=== PATIENT | female | born 1980 | race Caucasian/White ===

== ENCOUNTER 2016-02-08 00:30 | Emergency (ER) | payer OTHER ==
[~2016-02-08] VITALS: Ht 160 cm; Wt 45.5 kg
[~2016-02-08 00:30] MED LIST: AMOXICILLIN 50500 MG PO; AMOXICILLIN 8751 TAB PO; BIRTH CONTRO; BUSPAR5 MG PO; DUO-KAPS1 CAP PO; KLONOPIN 0.5MG0.5 MG PO; KLONOPIN 1MG1 MG PO; ORTHO TRI-CYCLE1 TA2 PO; PHENERGAN W/CO120 M1 PO; TRINESSA1 TAB; TUSS PO; WELLBUTRIN 75MG75 MG PO; ZOLOFT 25MG25 MG PO; [UNRECOGNIZED DRUG - REMARK]
[2016-02-08 00:31] VITALS: BP 129/85; TEMP 98.3
[2016-02-08 01:42] VITALS: PULSE 70
== END 2016-02-08 01:44 | disposition home or self-care (01) ==
LOC: COL.ER 00:30
DX: S61.412A Laceration without foreign body of left hand, initial encounter (principal); W25.XXXA Contact with sharp glass, initial encounter; Y92.009 Unspecified place in unspecified non-institutional (private) residence as the place of occurrence of the external cause

== ENCOUNTER 2016-02-18 17:46 | Emergency (ER) | payer OTHER ==
[2016-02-18 17:47] VITALS: BP 124/76; PULSE 60
== END 2016-02-18 18:17 | disposition home or self-care (01) ==
LOC: COL.ER 17:46
DX: Z48.02 Encounter for removal of sutures (principal)

== ENCOUNTER → 2016-10-13 | Outpatient (CLI) | payer OTHER | LOC: BHSO 09:58 | DX: F41.1 Generalized anxiety disorder (principal) ==

== ENCOUNTER → 2016-11-18 | Outpatient (CLI) | payer OTHER | LOC: BHSO 12:55 | DX: F41.1 Generalized anxiety disorder (principal) ==

== ENCOUNTER → 2016-12-02 | Outpatient (CLI) | payer OTHER | LOC: BHSO 12:56 | DX: F41.1 Generalized anxiety disorder (principal) ==

== ENCOUNTER → 2016-12-16 | Outpatient (CLI) | payer OTHER | LOC: BHSO 13:02 | DX: F41.1 Generalized anxiety disorder (principal) ==

== ENCOUNTER → 2016-12-29 | Outpatient (CLI) | payer OTHER | LOC: BHSO 12:55 | DX: F41.1 Generalized anxiety disorder (principal) ==

== ENCOUNTER → 2017-01-13 | Outpatient (CLI) | payer OTHER | LOC: BHSO 12:57 | DX: F41.1 Generalized anxiety disorder (principal) ==

== ENCOUNTER → 2017-01-27 | Outpatient (CLI) | payer OTHER | LOC: BHSO 12:54 | DX: F41.1 Generalized anxiety disorder (principal) ==

== ENCOUNTER → 2017-02-10 | Outpatient (CLI) | payer OTHER | LOC: BHSO 12:58 | DX: F41.1 Generalized anxiety disorder (principal) ==

== ENCOUNTER → 2017-03-10 | Outpatient (CLI) | payer OTHER | LOC: BHSO 13:00 | DX: F41.1 Generalized anxiety disorder (principal) ==

== ENCOUNTER → 2017-05-17 | Outpatient (CLI) | payer OTHER | LOC: BHSO 13:00 | DX: F41.1 Generalized anxiety disorder (principal) ==

== ENCOUNTER → 2017-08-05 | Outpatient (CLI) | payer OTHER | LOC: BHSO 12:59 | DX: F41.1 Generalized anxiety disorder (principal) ==

== ENCOUNTER → 2017-08-09 | Outpatient (CLI) | payer OTHER | LOC: COL.RAD 07:26 | DX: M43.17 Spondylolisthesis, lumbosacral region (principal); M51.27 Other intervertebral disc displacement, lumbosacral region; M48.07 Spinal stenosis, lumbosacral region ==

== ENCOUNTER → 2018-02-14 | Outpatient (CLI) | payer OTHER | LOC: BHSO 13:01 | DX: F41.1 Generalized anxiety disorder (principal) ==

== ENCOUNTER → 2018-04-04 | Outpatient (CLI) | payer OTHER | LOC: BHSO 13:00 | DX: F41.1 Generalized anxiety disorder (principal) ==

== ENCOUNTER → 2018-09-21 | Outpatient (CLI) | payer OTHER | LOC: BHSO 12:58 | DX: F41.1 Generalized anxiety disorder (principal) ==

== ENCOUNTER → 2018-09-29 | Outpatient (CLI) | payer OTHER | LOC: BHSO 09:00 | DX: F41.1 Generalized anxiety disorder (principal) ==

== ENCOUNTER → 2018-10-02 | Outpatient (CLI) | payer OTHER | LOC: BHSO 10:59 | DX: F41.0 Panic disorder [episodic paroxysmal anxiety] (principal) ==

== ENCOUNTER → 2018-10-05 | Outpatient (CLI) | payer OTHER | LOC: BHSO 12:58 | DX: F41.1 Generalized anxiety disorder (principal) ==

== ENCOUNTER → 2018-10-19 | Outpatient (CLI) | payer OTHER | LOC: BHSO 12:57 | DX: F41.1 Generalized anxiety disorder (principal) ==

== ENCOUNTER → 2018-10-30 | Outpatient (CLI) | payer OTHER | LOC: BHSO 13:01 | DX: F41.1 Generalized anxiety disorder (principal) ==

== ENCOUNTER → 2018-11-06 | Outpatient (CLI) | payer OTHER | LOC: BHSO 12:55 | DX: F41.0 Panic disorder [episodic paroxysmal anxiety] (principal) | CPT/HCPCS: G0463 ==

== ENCOUNTER → 2018-11-16 | Outpatient (CLI) | payer OTHER | LOC: BHSO 13:04 | DX: F41.1 Generalized anxiety disorder (principal) ==

== ENCOUNTER → 2018-11-21 | Outpatient (CLI) | payer OTHER | LOC: MHCPAIN 10:19 | DX: G89.29 Other chronic pain (principal); M47.817 Spondylosis without myelopathy or radiculopathy, lumbosacral region; M54.16 Radiculopathy, lumbar region; M53.3 Sacrococcygeal disorders, not elsewhere classified | CPT/HCPCS: G0463 ==

== ENCOUNTER → 2018-11-23 | Outpatient (CLI) | payer OTHER | LOC: MHCPAIN 11:02 | DX: M47.817 Spondylosis without myelopathy or radiculopathy, lumbosacral region (principal); M54.16 Radiculopathy, lumbar region | CPT/HCPCS: J1100; Q9967 ==

== ENCOUNTER 2018-12-02 23:28 | Emergency (ER) | payer OTHER ==
[~2018-12-02] VITALS: Ht 157.5 cm; Wt 42.3 kg
[2018-12-03 00:03] VITALS: BP 106/75; TEMP 97.4
[2018-12-03 02:05] VITALS: PULSE 87
== END 2018-12-03 02:05 | disposition left against medical advice (07) ==
LOC: COL.ER 23:28
DX: S09.90XA Unspecified injury of head, initial encounter (principal); S01.01XA Laceration without foreign body of scalp, initial encounter; F41.9 Anxiety disorder, unspecified; R40.2412 Glasgow coma scale score 13-15, at arrival to emergency department; W08.XXXA Fall from other furniture, initial encounter; Y92.009 Unspecified place in unspecified non-institutional (private) residence as the place of occurrence of the external cause

== ENCOUNTER → 2018-12-07 | Outpatient (CLI) | payer OTHER | LOC: BHSO 13:01 | DX: F41.1 Generalized anxiety disorder (principal) ==

== ENCOUNTER → 2018-12-11 | Outpatient (CLI) | payer OTHER ==
[2018-12-11 13:11] VITALS: BP 130/91; PULSE 94; TEMP 98.6
== END ==
LOC: COL.ER 13:06
DX: S01.01XD Laceration without foreign body of scalp, subsequent encounter (principal); X58.XXXD Exposure to other specified factors, subsequent encounter

== ENCOUNTER → 2018-12-13 | Outpatient (CLI) | payer OTHER | LOC: MHCPAIN 13:10 | DX: G89.29 Other chronic pain (principal); M47.817 Spondylosis without myelopathy or radiculopathy, lumbosacral region; M54.16 Radiculopathy, lumbar region; M53.3 Sacrococcygeal disorders, not elsewhere classified | CPT/HCPCS: G0463 ==

== ENCOUNTER → 2018-12-25 | Outpatient (CLI) | payer OTHER | LOC: MHCPAIN 13:33 | DX: M47.817 Spondylosis without myelopathy or radiculopathy, lumbosacral region (principal); M54.16 Radiculopathy, lumbar region | CPT/HCPCS: J1100; Q9967 ==

== ENCOUNTER → 2018-12-28 | Outpatient (CLI) | payer OTHER | LOC: BHSO 12:59 | DX: F41.1 Generalized anxiety disorder (principal) ==

== ENCOUNTER → 2019-01-10 | Outpatient (CLI) | payer OTHER | LOC: MHCPAIN 13:06 | DX: M47.817 Spondylosis without myelopathy or radiculopathy, lumbosacral region (principal); M53.3 Sacrococcygeal disorders, not elsewhere classified | CPT/HCPCS: G0463 ==

== ENCOUNTER → 2019-01-18 | Outpatient (CLI) | payer OTHER | LOC: BHSO 12:56 | DX: F33.1 Major depressive disorder, recurrent, moderate (principal) ==

== ENCOUNTER → 2019-01-25 | Outpatient (CLI) | payer OTHER | LOC: MHCPAIN 14:41 | DX: M43.17 Spondylolisthesis, lumbosacral region (principal) ==

== ENCOUNTER → 2019-02-21 | Outpatient (CLI) | payer OTHER | LOC: MHCPAIN 13:24 | DX: M47.817 Spondylosis without myelopathy or radiculopathy, lumbosacral region (principal); M53.3 Sacrococcygeal disorders, not elsewhere classified | CPT/HCPCS: G0463 ==

== ENCOUNTER → 2019-03-07 | Outpatient (CLI) | payer OTHER | LOC: BHSO 13:04 | DX: F41.0 Panic disorder [episodic paroxysmal anxiety] (principal) | CPT/HCPCS: G0463 ==

== ENCOUNTER → 2019-03-08 | Outpatient (CLI) | payer OTHER | LOC: MHCPAIN 13:46 | DX: M43.17 Spondylolisthesis, lumbosacral region (principal); M54.5 Low back pain ==

== ENCOUNTER → 2019-04-12 | Outpatient (CLI) | payer OTHER | LOC: MHCPAIN 13:10 | DX: M53.3 Sacrococcygeal disorders, not elsewhere classified (principal); M47.817 Spondylosis without myelopathy or radiculopathy, lumbosacral region; M43.17 Spondylolisthesis, lumbosacral region | CPT/HCPCS: G0463; J1100; J2250; J3010 ==

== ENCOUNTER → 2019-07-04 | Outpatient (CLI) | payer OTHER | LOC: MHCPAIN 12:58 | DX: M47.817 Spondylosis without myelopathy or radiculopathy, lumbosacral region (principal); M54.5 Low back pain; M53.3 Sacrococcygeal disorders, not elsewhere classified; M54.16 Radiculopathy, lumbar region; G89.29 Other chronic pain | CPT/HCPCS: G0463 ==

== ENCOUNTER → 2019-07-23 | Outpatient (CLI) | payer OTHER | LOC: BHSO 13:22 | DX: F41.1 Generalized anxiety disorder (principal) | CPT/HCPCS: G0463 ==

== ENCOUNTER 2019-09-09 03:15 | Inpatient (IN) | payer OTHER ==
[~2019-09-09] VITALS: Ht 157.5 cm; Wt 49.4 kg
[2019-09-09] VITALS (10 sets, daily range): BP systolic 90–110; BP diastolic 52–65; PULSE 59–79; TEMP 97.9–98.9
[2019-09-09] MEDS ORDERED: EFFEXOR XR75 MG/CAP PO (03:23)
[2019-09-09] MEDS ORDERED: NEURONTIN300 MG/CAP PO (03:24)
[2019-09-09] MEDS ORDERED: DESYREL 50MG50 MG PO (03:24)
[2019-09-09 03:46] LABS: BASO # 0.1 (0.0-0.2); BASO % 0.8 % (0.0-2.0); EOS # 0.1 (0.0-0.7); EOS % 1.9 % (0-4.0); GRAN # 5.4 (1.4-6.5); GRAN % 72.9 % (42.2-75.2); HEMATOCRIT 37.8 % (37.0-47.0); HEMOGLOBIN 13.1 g/dl (12.5-16.0); LYMPH # 1.3 (1.2-3.4); LYMPH % 17.8 % (20.0-51.0); MEAN CELL VOLUME 91 fl (80.0-100.0); MEAN CORPUSCULAR HEMOGLOBIN 32 pg (27.0-31.0); MEAN CORPUSCULAR HGB CONC 35 g/dl (33.0-37.0); MEAN PLATELET VOLUME 9.8 fl (7.4-10.4); MONO # 0.5 (0.1-0.6); MONO % 6.3 % (1.7-9.3); PLATELET COUNT 308 K/mm3 (130-400); RED BLOOD COUNT 4.14 M/mm3 (4.10-5.30); REDCELL DISTRIBUTION WIDTH-CV 11.9 % (11.5-14.5)
[2019-09-09 03:58] LABS: ALANINE AMINOTRANSFERASE 10 U/L (4-34); ALBUMIN 4.1 gm/dL (3.5-5.0); ALKALINE PHOSPHATASE 55 U/L (50-136); ANION GAP 6 mmol/L (7-16); AST,SGOT 22 U/L (15-37); BILIRUBIN,TOTAL 0.7 mg/dL (0.0-1.0); BLOOD UREA NITROGEN 7 mg/dL (7-17); C-REACTIVE PROTEIN < 0.5 mg/dL (0.0-0.9); CARBON DIOXIDE 26 mmol/L (22-30); CHLORIDE 103 mmol/L (98-107); CREATININE, serum 0.69 (0.52-1.25); GLUCOSE 116 mg/dL (74-106); LIPASE 58 U/L (23-300); POTASSIUM 3.6 mmol/L (3.4-5.0); SODIUM 136 mmol/L (137-145); TOTAL PROTEIN 7.5 gm/dL (6.4-8.2)
[2019-09-09 06:22] LABS: COLLECTION METHOD CLEAN CATCH
[2019-09-09 06:31] LABS: MUCOUS Present /lpf; PH 5 (5-8); URINE APPEARANCE Clear; URINE BACTERIA None Seen /hpf; URINE BILIRUBIN Negative (NEGATIVE); URINE BLOOD 1+ (NEGATIVE); URINE COLOR Yellow; URINE GLUCOSE Negative (NEGATIVE); URINE KETONE Trace (NEGATIVE); URINE LEUKOCYTE ESTERASE Negative (NEGATIVE); URINE NITRATE Negative (NEGATIVE); URINE PROTEIN(semi-quant) Negative (NEGATIVE); URINE UROBILINOGEN Negative (NEGATIVE)
--- NOTE | 2019-09-09 15:28 | NUR ---
PATIENT ASSESSMENT COMPLETED SHE IS HAVING SOME ABDOMEN PAIN BUT IT IS TOLERABLE WITH EPIDURAL. ICE CHIPS ALSO PROVIDED PER ORDERS. DRESSING IS CLEAN DRY AND INTACT. EPIDURAL INTACT
--- NOTE | 2019-09-09 15:30 | NUR ---
PATIENT RESTING COMFORTABLE IN BED.
--- NOTE | 2019-09-09 16:50 | NUR ---
PATIENT ATTEMPTING TO TAKE A NAP. RESTING IN BED
--- NOTE | 2019-09-09 18:08 | NUR ---
PATIENT REPOSITIONED IN BED. TOLERATES CLEAR LIQUIDS WITHOUT DIFFICULTY.
--- NOTE | 2019-09-09 18:58 | NUR ---
PATIENT EATING JELLO AND DENIES OTHER NEEDS RESTING IN BED.
--- NOTE | 2019-09-09 20:01 | NUR ---
Pt. laying in bed at this time. Pt. is A&OX3, assessment complete. IV to lt. ac patent, IV fluids infusing per orders. Epidural intact, dressing CDI. Abd. midline incision with airstrip with minimal drainage noted. Pt. reports pain under control at this time with the epidural. Pt. denies further needs, call light within reach.
[2019-09-10] VITALS (7 sets, daily range): BP systolic 99–132; BP diastolic 55–87; PULSE 67–83; TEMP 97.4–98.7
--- NOTE | 2019-09-10 04:45 | NUR ---
Pt.'s epidural empty. Claude Stone CRNA notified. Pt. given 1 dose of Dilaudid for pain.
[2019-09-10 07:02] LABS: CALCIUM 8.5 mg/dL (8.4-10.2); CREATININE, serum 0.73 (0.52-1.25); POTASSIUM 3.8 mmol/L (3.4-5.0)
[2019-09-10 07:17] LABS: HEMOGLOBIN 12.1 g/dl (12.5-16.0)
[2019-09-10 07:21] LABS: HEMATOCRIT 34.7 % (37.0-47.0)
--- NOTE | 2019-09-10 07:50 | NUR ---
Patient tearful at bedside shift report. Prn Morphine was given. Reglan for complaints if nausea. Anesthesia notified of new epidural bag from pharmacy. Claude Stone INTERLOCKING PAVEMENT INSTALLER replaced bag. Plan of care reviewed with patient, once pain better managed, activity to be encourged. Is and CDB encourged, even though it hurts. Stressed the imporance. Patient refused Scds at this time. Ivf to Lac. Vss.
--- NOTE | 2019-09-10 08:43 | NUR ---
Patient pain much better managed at this time after epidural restarted by anesthesia. Patient wanting to rest, reports being tired. Will let her rest at this time, but stressed agin the imporance of activity today, RT called and made them, aware patient needs her IS at bedside.
--- NOTE | 2019-09-10 12:28 | NUR ---
Patient up to the chair, she was very nervous & hesitant. With alot of encouragement, she is sitting up chair. 2 assist. She reports being hot. Full bed bath & fresh linens provided. She reports belching, no flatus. Tang to DD. Slightly nauseated with movement. But she does report feeeling better once up in chair. Will continue to encourage patient.
--- NOTE | 2019-09-10 14:36 | NUR ---
Scrap Handler met with the patient to complete initial intake. The patient lives in [place] with Sea Ojeda. The patient denies DME use and is independent with ADLs. The patient's PCP is Dr. Ana Fang and patient receives medications from [facility] [place] no difficulties. The patient does not have advanced directives in the EMR but was interested in a DPOA-HC form. Form provided. The patient plans to return home at discharge, Sea will provide transportation. There are no additional needs at this time.
--- NOTE | 2019-09-10 16:33 | NUR ---
Patient assisted back to bed. She was nauseated when up. Martín Hopper Crna was at bedside, he advised leaving hennessy due to patient using such a high volume of epidural medication. Hennessy in at this time. made aware. Patient has been using Logistics Intern button frequently. Ivf as ordered. Patient continues to deny passing flatus, but is belching. minimal Po intake. Refusing Scds at this time. I discussed risk of blood clots with patient. Patient used Incentive spirometer twice, but concerned about it hurting. I stressed the importance. We reviewed abdominal splinting with pillow. Kpad provided, but she reports being to warm for that. Patient wanting to rest. Her significant other Sea brought her belongings.
--- NOTE | 2019-09-10 17:59 | NUR ---
Patient nausea at bay. Clear liquid dinner provided. Dea just reports being tired & not being able to sleep.
--- NOTE | 2019-09-10 19:00 | NUR ---
Report was given by KERI Seay. Pt currently is in the chair. Pt was assisted by me and Geena to get to the chair. Pt has her call light and her pain button within reach. Her epidrual site is clean, dry and intact and has tape and tegaderm on it.
--- NOTE | 2019-09-10 19:38 | NUR ---
Patient 2 person assisted back to chair, she ambulated in room. Patient did move better this time, she is still very nervous/hesitant. ALot of encouragement provided. She continues to deny passing flatus, but belching. She continues to feel hot & sweaty. Blood sugar stable. She is drink ice water no other interst in liquids. bedside report to rani orosco
--- NOTE | 2019-09-10 22:00 | NUR ---
Pt currently lying in bed. Pt dressing on her abdomen has no changes from the beginning of the shift. Pt was offered to change the dressing at this time. Pt refused for dressing to be changed. Pt has her call light within reach and her bed is in lowewst position.
--- NOTE | 2019-09-11 03:57 | NUR ---
Pt is currently sleeping in bed. Pt did get up in the chair during the shift. Pt did well we took it really slow. She was a 2 assists with her transfer. Pt requested something for nausea. Pt has her call light within reach.
[2019-09-11 04:02] VITALS: BP 144/90; PULSE 86; TEMP 98.4
--- NOTE | 2019-09-11 04:19 | NUR ---
Pt was given nausea medication at this time. Pt is currently resting in bed. Pt has her call light within reach and her bed is in lowest position.
--- NOTE | 2019-09-11 07:00 | NUR ---
Reported off to KERI Resendiz. Pt is currently sitting up in bed and has her call light and pain button within reach.
--- NOTE | 2019-09-11 07:03 | NUR ---
REPORT FROM STEFANIE SAAVEDRA.
--- NOTE | 2019-09-11 07:58 | NUR ---
PT REQUESTING NAUSEA MED. IV MEDS GIVEN ORDERED. ENCOURAGED INCREASING ACTIVY/AMBULATION AND TO GET UP TO RECLINER THIS AM. PT VERBALIZED UNDERSTANDING. MIDLINE INCISION WITH SM AMT OF DISTAL DRAINAGE SHADOWING DRESSING. EPIDURAL RUNNING @ 8MLS/HR, PAIN CONTROLLED AT THIS TIME. ELLISON CATHEETER TO DD WITH CLEAR YELLOW CONCENTRATED URINE.
[2019-09-11 08:45] VITALS: BP 141/94; PULSE 84; TEMP 97.9
--- NOTE | 2019-09-11 10:13 | NUR ---
ELLISON CATHETER DISCONTINUED BY LEIA SAAVEDRA. PER PATIENT COMFORT. PT TOLERATED WELL.
--- NOTE | 2019-09-11 11:27 | NUR ---
Initial visit; Patient thanked Patent Legal Assistant for looking in on her and offering prayer and empathy. Patient was receptive to having Patent Legal Assistant call her [facility] home and let them know she is hospitalized and would like prayer. Patent Legal Assistant will follow up.
[2019-09-11 11:55] VITALS: BP 154/95; PULSE 84; TEMP 98.1
--- NOTE | 2019-09-11 13:06 | NUR ---
EPIDURAL DISCONTINUED PER ORDERS PATIENT TOLERATED WELL. TIP INTACT. BANDAIDE OVER SITE.
--- NOTE | 2019-09-11 13:09 | NUR ---
PT NEEDS LOTS OF ENCOURAGEMENT TO AMBULATE. PT IS ABLE TO AMBULATE INDEPENDENTLY BUT WILL NOT OUT OF FEAR. OFFERED ENCOURAGEMENT AND CONSULTED PHYSICAL THERAPY FOR ASSISTANCE IN CONTINUING TO MOBLIZE.
[2019-09-11 15:46] VITALS: BP 154/98; PULSE 94; TEMP 97.7
--- NOTE | 2019-09-11 18:56 | NUR ---
REPORT TO RIK SAAVEDRA.
[2019-09-11 19:25] VITALS: BP 153/84; PULSE 79; TEMP 98.7
--- NOTE | 2019-09-11 19:30 | NUR ---
Pt. sitting up in bed at this time. Pt. is A&OX3, assessment complete. INT to lt. ac patent. Pt. reports pain at a 7 on pain scale, will give pain meds per orders. Midline incision is CDI with an airstrip dressing. Pt. denies further needs, call light within reach.
[2019-09-11 23:23] VITALS: BP 137/78; PULSE 75; TEMP 98.6
[2019-09-12 03:29] VITALS: BP 134/79; PULSE 79; TEMP 98.6
[2019-09-12 09:31] VITALS: BP 119/71; PULSE 68; TEMP 97.6
[2019-09-12 11:14] VITALS: BP 138/82; PULSE 84; TEMP 98.1
--- NOTE | 2019-09-12 11:51 | NUR ---
Prop And Scenery Maker met with the patient and her lamine Sea to follow up. The plan is to return home. The patient states she is feeling a little better. The patient had her lunch tray and was hoping she could advance her diet. Will continue to follow.
[2019-09-12 16:12] VITALS: BP 138/93; PULSE 93; TEMP 98.1
--- NOTE | 2019-09-12 18:30 | NUR ---
Patient has been doing well today. She showered this morning. Her pain has been controlled with ultram and norco. Some nausea after lunch, zofran given. She continues to pass flatus, no bowel movements. Incision is doing well, no drainage, no reddness and tamra are inctact. No other changes at this time. Call light within reach.
[2019-09-12 20:16] VITALS: BP 143/92; PULSE 97; TEMP 98.2
--- NOTE | 2019-09-12 20:30 | NUR ---
Pt. sitting up in bed. Pt. is A&OX3, assessment complete. INT to lt. ac patent. [place]remayne to midline abd. incsion are intact. Pt. reports pain at a 6 on pain scale at this time. Will give meds per orders. Pt. did ambulate in the tubbs independently. Pt. denies further needs, call light within reach.
[2019-09-12 23:41] VITALS: BP 148/97; PULSE 97; TEMP 98.4
[2019-09-13 04:21] VITALS: BP 132/89; PULSE 92; TEMP 98.2
[2019-09-13 07:59] VITALS: BP 130/90; PULSE 84; TEMP 98.6
[2019-09-13] MEDS ORDERED: NORCO 325 MG-51 TAB PO (10:08)
--- NOTE | 2019-09-13 10:34 | NUR ---
Follow-up visit; Patient thanked Evs Attendant for stopping again and leaving a prayer card and wishing Shalonda well.
--- NOTE | 2019-09-13 11:30 | NUR ---
Patient has been doing well this morning. She has been trying to hold off on pain medications because she is worried about constipation. She has been ambulating in the hallways. She was having some nausea with the lunch, zofran given. She stated she did not like the food. INT discontinued at this time. Patient will be discharging later when her ride can take her home. She has been up in the room, she showered this morning. No other changes at this time. Call light within reach.
--- NOTE | 2019-09-13 13:15 | NUR ---
Patient is discharging home. Discharge instructions discussed with patient. Explained when her follow up appointment is. All her belongings packed up and sent with patient. Explained she has a prescription for norco to get filled. Copies of discharge instructions sent with patient. Patient walked out via wheel chair by Ryan LEE.
== END 2019-09-13 13:15 | disposition home or self-care (01) | DRG 331 ==
LOC: COL.ER 03:15 → SURG 10:48
PROVIDERS: Emergency Medicine; ADMIT Surgery
PROC: 0DTH0ZZ Resection of Cecum, Open Approach (ICD-10-PCS; principal; 2019-09-09 11:30)
DX: K56.2 Volvulus (principal); F41.9 Anxiety disorder, unspecified; G89.29 Other chronic pain; M54.9 Dorsalgia, unspecified; K59.00 Constipation, unspecified
CPT/HCPCS: A4314; A9284; J0690; J1100; J1170; J1885; J2250; J2270; J2405; J2704; J2710; J2765; J2795; J3010; J7030; J7120; Q9967

== ENCOUNTER → 2019-12-12 | Outpatient (CLI) | payer OTHER ==
[~2019-12-12] MED LIST changes: +DESYREL 50MG50 MG PO; +EFFEXOR XR75 MG/CAP PO; +NEURONTIN300 MG/CAP PO; +NORCO 325 MG-51 TAB PO
== END ==
LOC: MHCPAIN 08:11
DX: M47.817 Spondylosis without myelopathy or radiculopathy, lumbosacral region (principal); M54.5 Low back pain; M53.3 Sacrococcygeal disorders, not elsewhere classified; G89.29 Other chronic pain
CPT/HCPCS: G0463

== ENCOUNTER → 2020-06-11 | Outpatient (CLI) | payer OTHER | LOC: MHCPAIN 13:00 | DX: M47.817 Spondylosis without myelopathy or radiculopathy, lumbosacral region (principal); M53.3 Sacrococcygeal disorders, not elsewhere classified; M54.16 Radiculopathy, lumbar region; G89.29 Other chronic pain | CPT/HCPCS: G0463 ==

== ENCOUNTER → 2020-06-26 | Outpatient (CLI) | payer OTHER | LOC: MHCPAIN 12:55 | DX: M47.817 Spondylosis without myelopathy or radiculopathy, lumbosacral region (principal); M54.16 Radiculopathy, lumbar region | CPT/HCPCS: J1100; Q9967 ==

== ENCOUNTER → 2020-07-09 | Outpatient (CLI) | payer OTHER | LOC: MHCPAIN 12:59 | DX: M47.817 Spondylosis without myelopathy or radiculopathy, lumbosacral region (principal); M53.3 Sacrococcygeal disorders, not elsewhere classified; M54.16 Radiculopathy, lumbar region; G89.29 Other chronic pain | CPT/HCPCS: G0463 ==

== ENCOUNTER → 2020-07-24 | Outpatient (CLI) | payer OTHER | LOC: MHCPAIN 12:48 | DX: M47.817 Spondylosis without myelopathy or radiculopathy, lumbosacral region (principal); M54.16 Radiculopathy, lumbar region | CPT/HCPCS: J1100; Q9967 ==

== ENCOUNTER → 2020-08-13 | Outpatient (CLI) | payer OTHER | LOC: MHCPAIN 08:02 | DX: M47.817 Spondylosis without myelopathy or radiculopathy, lumbosacral region (principal); M54.5 Low back pain; M53.3 Sacrococcygeal disorders, not elsewhere classified | CPT/HCPCS: G0463 ==

== ENCOUNTER → 2020-09-22 | Outpatient (CLI) | payer OTHER | LOC: MHCPAIN 13:24 | DX: M47.817 Spondylosis without myelopathy or radiculopathy, lumbosacral region (principal); M54.5 Low back pain; M53.3 Sacrococcygeal disorders, not elsewhere classified | CPT/HCPCS: G0463 ==

== ENCOUNTER → 2020-11-13 | Outpatient (CLI) | payer OTHER | LOC: MHCPAIN 13:37 | DX: M47.817 Spondylosis without myelopathy or radiculopathy, lumbosacral region (principal); M54.50 Low back pain, unspecified; M53.3 Sacrococcygeal disorders, not elsewhere classified; G89.29 Other chronic pain | CPT/HCPCS: G0463; J1100; J2250; J3010 ==

== ENCOUNTER → 2021-01-07 | Outpatient (CLI) | payer OTHER | LOC: MHCPAIN 13:24 | DX: M54.16 Radiculopathy, lumbar region (principal); M53.3 Sacrococcygeal disorders, not elsewhere classified; G89.29 Other chronic pain | CPT/HCPCS: G0463 ==

== ENCOUNTER → 2021-05-11 | Outpatient (CLI) | payer OTHER | LOC: MHCPAIN 13:11 | DX: M47.896 Other spondylosis, lumbar region (principal); M53.3 Sacrococcygeal disorders, not elsewhere classified; M54.16 Radiculopathy, lumbar region | CPT/HCPCS: G0463 ==